=== PATIENT | male | born 1935 | race Caucasian/White ===

== ENCOUNTER 2018-11-11 14:51 | Inpatient (IN) | payer OTHER ==
[~2018-11-11] VITALS: Ht 172.7 cm; Wt 82.6 kg
[2018-11-11 14:55] VITALS: BP 111/68
--- NOTE | 2018-11-11 14:55 | NUR ---
PATIENT BIBA TO BED 7 AT THIS TIME.
[2018-11-11] MEDS ORDERED: IBUPROFEN 800 MG TAB PO ONE (15:15)
[2018-11-11] MEDS ORDERED: ACETAMINOPHEN EXTRA STRENGTH 500 MG TAB PO ONE (15:15)
[2018-11-11] MEDS ORDERED: SYN.05 PO (15:19)
[2018-11-11] MEDS ORDERED: IBUPROFEN 800 MG TAB ONE (15:24)
[2018-11-11] MEDS ORDERED: ACETAMINOPHEN EXTRA STRENGTH 500 MG TAB ONE (15:25)
--- NOTE | 2018-11-11 15:36 | NUR ---
PT BIB ALS C/O ALOC. PER EMS PT WAS FOUND IN HOT CAR SLEEPING. PT IS AROUSABLE BUT LETHARGIC, AAOX2 (BS 87). +4 PITTING BILATERAL LOWER EXTREMITY EDEMA NOTED, ABD DISTENDED. TEMPERATURE 102.0, COOLING MEASURES TAKEN. VSS. ER MD TO SEE PT. PMH: HYPOTHRYOIDISM, HEPATITIS RX: DIURETIC (PT UNSURE OF NAME)
[2018-11-11] MEDS ORDERED: MULTIVITAMIN-12 10 ML, THIAMINE 100 MG, MAGNESIUM SULFATE 50% 2,000 MG, FOLIC ACID 5 MG... IV ONE ×5 (16:18)
[2018-11-11 16:54] LABS: BASOPHILS % (AUTO) 0.2 % (0.0-2.0); EOSINOPHILS % (AUTO) 0.5 % (0.0-4.0); HEMOGLOBIN 9.4 g/dL (12.0-18.0); LYMPHOCYTES # (AUTO) 0.8 K/uL (2.0-11.5); LYMPHOCYTES % (AUTO) 10.7 % (20.5-51.1); MEAN CORPUSCULAR HEMOGLOBIN 33 pg (27-31); MEAN CORPUSCULAR HGB CONC 34 g/dL (33-37); MEAN CORPUSCULAR VOLUME 97.6 fL (80-94); MONOCYTES % (AUTO) 13.6 % (1.7-9.3); NEUTROPHILS # (AUTO) 5.3 K/uL (1.8-7.7); PLATELET COUNT (AUTO) 165 K/uL (140-450); RED BLOOD CELL COUNT(AUTO) 2.87 MIL/uL (4.20-6.10); RED CELL DISTRIBUTION WIDTH 16.3 % (11.6-13.7); WHITE BLOOD COUNT (AUTO) 7.1 K/uL (4.8-10.8)
--- NOTE | 2018-11-11 17:10 | NUR ---
# 16 FR Vivas catheter with 10 ml utilizing sterile technique. Immediate return of 50 ml JANELLE urine noted. Bedside drainage bag placed below level of bladder. Urine sample collected and sent to lab. Pt tolerated procedure WELL.
[2018-11-11 17:11] LABS: AMYLASE 43 U/L (25-115); LIPASE 85 U/L (73-393)
[2018-11-11 17:13] LABS: ANION GAP 13.2 (8-16); CARBON DIOXIDE 20.4 mmol/L (21-32); CHLORIDE 105 mmol/L (98-107); CREATININE 1.6 mg/dL (0.7-1.3); GLUCOSE 91 mg/dL (74-106); POTASSIUM 3.6 mmol/L (3.5-5.1); SODIUM SERUM 135 mmol/L (136-145); UREA NITROGEN, BLOOD 26 mg/dL (7-18)
[2018-11-11 17:20] LABS: ALBUMIN 1.5 g/dL (3.4-5.0); ASPARTATE AMINOTRANSFERASE 31 U/L (15-37); TOTAL BILIRUBIN 2.6 mg/dL (0.0-1.0)
--- NOTE | 2018-11-11 17:26 | NUR ---
PT AT CT AT THIS TIME
[2018-11-11 17:37] LABS: APPEARANCE,URINE CLEAR (CLEAR); BILIRUBIN,URINE 2+ (NEGATIVE); BLOOD, URINE 2+ (NEGATIVE); COLOR,URINE DARK YELLOW (YELLOW); LEUKOCYTE ESTERASE ,URINE TRACE (NEGATIVE); NITRITE, URINE NEGATIVE (NEGATIVE); UGLUCOSE NEGATIVE (NEGATIVE)
[2018-11-11 17:44] LABS: BARBITURATE, URINE NEG. ng/ml (NEG <=200); BENZODIAZEPINE, URINE NEG. ng/mL (NEG <=200); CANNABINOID, URINE NEG. ng/mL (NEG <=50); COCAINE, URINE NEG. ng/mL (NEG <=300); OPIATE, URINE NEG. ng/mL (NEG <=2000); PHENCYCLIDINE SCREEN,URINE NEG. ng/mL (NEG <=25)
[2018-11-11 17:48] LABS: HYALINE CASTS, URINE 0-10 /LPF (None Seen)
[2018-11-11] MEDS ORDERED: NACL 0.9% 1,000 ML IV SCH (18:27)
[2018-11-11] MEDS ORDERED: HYDROcodone/APAP 5/325 MG 1 TAB TAB PO PRN (18:30)
[2018-11-11] MEDS ORDERED: MORPHINE SULFATE 2 MG/ML SYR IVP PRN (18:30)
[2018-11-11] MEDS ORDERED: DOCUSATE SODIUM 100 MG GELCAP PO PRN (18:30)
[2018-11-11] MEDS ORDERED: ACETAMINOPHEN 325 MG TAB PO PRN (18:30)
[2018-11-11] MEDS ORDERED: ONDANSETRON 4 MG/2 ML VIAL IM/IVP PRN (18:30)
[2018-11-11] MEDS ORDERED: MEDICATION REC. PHARMACY CONS. 1 EA MISC MC PRN (18:40)
--- NOTE | 2018-11-11 18:50 | NUR ---
Pt transferred to Tele via BED 121A WITH MARICHUY CANTU.
--- NOTE | 2018-11-11 18:50 | NUR ---
Patient will be admitted to care of [facility]. Admited to TELE VIA GURMARIELA W/ VSS. Will go to room 121A. Belongings list completed. Report to CAMILA BENEDICT.
--- NOTE | 2018-11-11 18:55 | NUR ---
Pt admitted to room 121A from ER via gurney. Transferred to bed with 2-person mod assist. Pt aaox3, verbally responsive, respirations even & nonlabored. Left forearm IV intact with ongoing Banana bag @ 250ml/hr. Vivas cath in place & draining min amt james urine. BLE 4+ pitting edema, mod ascites to abd. Pt oriented to room & unit. Able to follow commands & return demonstrate proper use of call light. Proof Coin Collector at bedside to draw blood. Will cont to monitor.
--- NOTE | 2018-11-11 19:30 | NUR ---
Bedside report given to pm nurse Tracee.
--- NOTE | 2018-11-11 19:31 | NUR ---
RECEIVED REPORT FROM AM NURSE CAMILA, PT JUST ARRIVED FROM ED, V/S TAKEN, WNL, IV TO L FA 20G PATENT, INTACT, INFUSING WELL, PT ON 2LPM O2 VIA NC, NO SOB NOTED, INITIAL ASSESSMENT DONE, ALL SAFETY PRECAUTION MET, MRSA SWAB TAKEN, ORIENT PT TO ROOM, BED, AND CALL LIGHT, WILL CONTINUE TO MONITOR.
[2018-11-11 19:50] VITALS: BP 120/60
[2018-11-11 20:04] LABS: MAGNESIUM 2.3 mg/dL (1.8-2.4); PHOSPHORUS 3.1 mg/dL (2.5-4.9); THYROID STIMULATING HORMONE 23.64 uIU/mL (0.34-3.74)
[2018-11-11 20:07] LABS: PROTHROMBIN TIME 13.7 secs (10.8-13.4)
[2018-11-11] MEDS ORDERED: MELATONIN 3 MG TAB PO PRN (21:00)
--- NOTE | 2018-11-11 21:00 | NUR ---
HEPARIN NOT ADMINISTERED, PT HAD A LOT ECCHYMOSIS AND HAD BLEEDING FROM EARLIER BLOOD DRAW THAT HAS NOT CLOTTED, NOTIFIED DR. BENITES REGARDING HEPARIN HELD. STATED UNDERSTANDING.
[2018-11-11] MEDS ORDERED: ALBUTEROL SULFATE/IPRATROPIU 3 ML SOL IH PRN (21:05)
[2018-11-11] MEDS ORDERED: LACTULOSE 20 GM/30 ML UDC PO ONE (22:30)
--- NOTE | 2018-11-11 23:05 | NUR ---
DUE MEDICATION ADMINISTERED, PT TOLERATED WELL, NO DISTRESS NOTED, CALL LIGHT WITHIN REACH, WILL CONTINUE TO MONITOR.
[2018-11-12] VITALS: BP 105/65
--- NOTE | 2018-11-12 02:12 | NUR ---
CHECKED ON PT PT SLEEPING, CALL LIGHT WITHIN REACH, WILL CONTINUE TO MONITOR.
[2018-11-12 04:00] VITALS: BP 114/68
--- NOTE | 2018-11-12 04:30 | NUR ---
NOTIFIED DR. BENITES REGARDING PT IS NOT MAKING URINE, THROUGH OUT THE NIGHT ONLY 20ML URINE COLLECTED IN THE ARELLANO CATH. STATED UNDERSTANDING WILL ORDER RENAL CONSULT. PT RESTING, NO DISTRESS NOTED, CALL LIGHT WITHIN REACH, WILL CONTINUE TO MONITOR.
[2018-11-12] MEDS ORDERED: PIPER/TAZO 2.25GM/D5W PREMIX 50 ML IV SCH ×2 (05:00→12:00)
[2018-11-12] MEDS ORDERED: PIPERACILLIN/TAZOBACTAM 2.25 GM VIAL IV ONE (05:20)
[2018-11-12] MEDS ORDERED: LEVOTHYROXINE 0.05 MG TAB PO SCH (06:30)
[2018-11-12 06:34] LABS: BASOPHILS # (AUTO) 0.1 K/uL (0.00-0.22); BASOPHILS % (AUTO) 0.8 % (0.0-2.0); EOSINOPHILS # (AUTO) 0.1 K/uL (0-0.4); EOSINOPHILS % (AUTO) 0.9 % (0.0-4.0); HEMATOCRIT 28.6 % (36-52); HEMOGLOBIN 9.7 g/dL (12.0-18.0); LYMPHOCYTES % (AUTO) 11.4 % (20.5-51.1); MEAN CORPUSCULAR HEMOGLOBIN 33 pg (27-31); MEAN CORPUSCULAR HGB CONC 34 g/dL (33-37); MEAN CORPUSCULAR VOLUME 97.6 fL (80-94); MONOCYTES # (AUTO) 0.9 K/uL (0.8-1.0); MONOCYTES % (AUTO) 10.9 % (1.7-9.3); NEUTROPHILS # (AUTO) 6.5 K/uL (1.8-7.7); PLATELET COUNT (AUTO) 171 K/uL (140-450); RED BLOOD CELL COUNT(AUTO) 2.93 MIL/uL (4.20-6.10); RED CELL DISTRIBUTION WIDTH 16.6 % (11.6-13.7); WHITE BLOOD COUNT (AUTO) 8.6 K/uL (4.8-10.8)
--- NOTE | 2018-11-12 06:41 | NUR ---
ATTEMPT TO CONTACT [facility] FOR PT MEDICAL RECORD, TOLD TO CALL BACK AT [phone].
[2018-11-12 06:49] LABS: CHOL/HDL RATIO 3.6 (1-4.5)
[2018-11-12 06:51] LABS: ANION GAP 13.3 (8-16); CARBON DIOXIDE 20.4 mmol/L (21-32); CHLORIDE 106 mmol/L (98-107); CREATININE 1.7 mg/dL (0.7-1.3); GLUCOSE 114 mg/dL (74-106); POTASSIUM 3.7 mmol/L (3.5-5.1); SODIUM SERUM 136 mmol/L (136-145); UREA NITROGEN, BLOOD 27 mg/dL (7-18)
--- NOTE | 2018-11-12 07:20 | NUR ---
ENDORSED PT TO DAY SHIFT NURSE, PT STABLE, NO DISTRESS NOTED, CALL LIGHT WITHIN REACH.
--- NOTE | 2018-11-12 07:20 | NUR ---
REPORT RECEIVED FROM NIGHT NURSE CARRILLO, PT SLEEPING, EASILY AROUSABLE, AWAKE AND APPROPRIATE. PT DENIES SOB OR PAIN. PERSONAL ITEMS WITHIN EASY REACH, CALL LIGHT, FALL AND SAFETY PRECAUTIONS IN PLACE, WILL CONTINUE TO MONITOR.
[2018-11-12] MEDS ORDERED: FUROSEMIDE 20 MG/2 ML VIAL IVP SCH ×2 (07:41→09:00)
[2018-11-12] MEDS ORDERED: BISACODYL 10 MG SUPP RC SCH (07:41)
[2018-11-12 08:00] VITALS: BP 105/66
[2018-11-12] MEDS: ALBUTEROL SULFATE/IPRATROPIU 3 ML SOL IH SCH ×3 (08:10→20:02)
[2018-11-12] MEDS ORDERED: LACTULOSE 20 GM/30 ML UDC PO SCH ×3 (09:00→21:00)
[2018-11-12] MEDS ORDERED: SPIRONOLACTONE 50 MG TAB PO SCH (09:00)
--- NOTE | 2018-11-12 09:30 | NUR ---
ATTEMPTED BLADDER SCAN AT BEDSIDE, ARCHITECTURAL TECHNICIAN PRESENT, PER ARCHITECTURAL TECHNICIAN PT ASCITIC, FREE FLUID OBSTRUCTING ACCURACY OF BLADDER SCAN, RECORDS IN EXCESS OF 999 ML. ORDERS TO BE WRITTEN. PT CURRENTLY COMFORTABLE, AWAKE AND APPROPRIATE. PT DENIES SOB OR PAIN. PERSONAL ITEMS WITHIN EASY REACH, CALL LIGHT, FALL AND SAFETY PRECAUTIONS IN PLACE, WILL CONTINUE TO MONITOR.
--- NOTE | 2018-11-12 09:41 | NUR ---
PATIENT HAS BEEN SCREENED AND CATEGORIZED HIGH NUTRITION RISK. PATIENT WILL BE SEEN WITHIN 1-2 DAYS OF ADMISSION. 11/12/18-11/13/[address]
--- NOTE | 2018-11-12 10:30 | NUR ---
SPOKE WITH NORBERTO AT [facility] IN INFORMATION AND RECORDS TO REQUEST RECORDS AND FAX NUMBER TO SEND AUTHORIZATION. FAX NUMBER VERIFIED FOLLOWS [phone] REQUEST FOR MEDICAL RECORDS FAXED TO [facility].
--- NOTE | 2018-11-12 10:52 | NUR ---
AAYUSH FROM ADMITTING NOTIFIED ME THAT THIS PATIENT INSURANCE IS BELONG TO [facility], AND TO CALL THE CM YAHAIRA [phone] . I CALLED YAHAIRA GASPAR LEFT A MESSAGE
--- NOTE | 2018-11-12 11:00 | NUR ---
NOTIFIED PT OF PHYSICIAN ORDER FOR STOOL SAMPLE, COLLECTION CONTAINER PLACED AT BEDSIDE AND PT INSTRUCTED TO NOTIFY NURSING WHEN HE FEELS THE URGE TO PASS STOOL. PT AGREEABLE, VERBALIZED UNDERSTANDING. PT REMAINS AWAKE AND APPROPRIATE. PT DENIES SOB OR PAIN. ERSONAL ITEMS WITHIN EASY REACH, CALL LIGHT, FALL AND SAFETY PRECAUTIONS IN PLACE, WILL CONTINUE TO MONITOR.
--- NOTE | 2018-11-12 11:36 | NUR ---
WOUND CARE EVALUATION NOTE: SKIN ASSESSMENT DONE WITH THIS 82 Y/O MALE ADMITTED TO [facility] WITH ALOC.PAST MEDICAL HX INCLUDES RENAL FAILURE, HEPATITIS C, HYPOTHYROIDISM AND CIRRHOSIS. PT PCP IS AT [facility]. ABOVE INFORMATION WAS OBTAINED FROM ADMISSION H&P.PT. UPPER ARMS WITH MULTIPLE ECCHYMOSIS, SKIN VERY THIN FRAGILE AND DRY. POC DISCUSSED WITH PT. AND PRIMARY RN. AND PT. PT. VERBALIZES UNDERSTANDING. INTEGUMENTARY: - BILATERAL UPPER ARMS WITH MULTIPLE ECCHYMOSIS, SKIN VERY THIN FRAGILE AND DRY -ABDOMINAL DISTENTION SKIN INTACT -SKIN TEARS TO LEFT THUMBS AND LEFT WRIST DRESSING DCI -BILATERAL +1 EDEMA WITH FUNGAL TOE NAILS -RIGHT LOWER BUTTOCK WITH OLD HEALED SCARS -RIGHT BUTTOCK IAD 0.5X0.5CM EROSION, WOUND BED PINK, MOIST, NO ODOR, PERR-WOUND SKIN INTACT RECOMMENDATIONS: -APPLY HYDRA GUARD TO UPPER EXTREMITIES BID AND LEAVE IT OPEN TO AIR - CLEANSE RIGHT BUTTOCK WITH WOUND NS. AND APPLY Z-GUARD COVER WITH OPTIFOAM DRESSING QD AND PRN IF SOILING -APPLY VERSATEL DRESSING TO LEFT HAND SKIN TEARS AND RIGHT /LEFT UPPER ARMS Q7 DAYS AND PRN IF SOILING PREVENTION -APPLY HEEL PROTECTORS TO BOTH HEELS AT ALL TIMES -OFFLOAD BILATERAL HEELS BY PLACING PILLOWS UNDER CALVES UNLESS OTHERWISE CONTRAINDICATED -PRESSURE REDISTRIBUTION SURFACE THERAPY BY POSITIONING PILLOWS -TURN AND REPOSITION Q2H, OFFLOAD SACRALCOCCYX AND BUTTOCKS BY TURNING RIGHT AND LEFT -CONTINUE TO FOLLOW RD RECOMMENDATIONS -KEEP SKIN DRY AND CLEAN AT ALL TIMES. RECOMMENDATIONS DISCUSSED WITH PRIMARY RN PLEASE CONTACT WOUND CARE NURSE FOR ANY QUESTIONS AND CHANGES IN SKIN CONDITION.
[2018-11-12 12:00] VITALS: BP 115/67
[2018-11-12] MEDS ORDERED: Z-GUARD PASTE TP SCH (13:00)
[2018-11-12] MEDS ORDERED: ALBUMIN HUMAN 25% 100 ML IV SCH (13:00)
[2018-11-12] MEDS ORDERED: HYDRAGUARD CREAM TP SCH (13:00)
--- NOTE | 2018-11-12 13:00 | NUR ---
PT CURRENTLY SLEEPING COMFORTABLY.NO S/S OF ACUTE DISTRESS NOTED. PERSONAL ITEMS WITHIN EASY REACH, CALL LIGHT, FALL AND SAFETY PRECAUTIONS IN PLACE, WILL CONTINUE TO MONITOR.
--- NOTE | 2018-11-12 13:30 | NUR ---
I RECEIVED A CALL FROM YAHAIRA GASPAR FROM [facility] STATED PATIENT NEEDS TO BE TRANSFERRED TO CONTRACTED FACILITY IF STABLE. DR PEREZ TRANSFERRED THE CARE TO DR JENA VEGA. I CALLED DR BELLA AND NOTIFIED THE INSURANCE REQUEST, PER DR BELLA PT IS OK TO BE TRANSFERRED. I CALLED YAHAIRA THE CM ANY NOTIFIED DR BELLA'S ORDER, PER YAHAIRA PT WILL BE TRANSFERRED TO [facility] UNDER THE CARE OF DR HORVATH . SHE WILL CALL WHEN BED IS AVAILABLE
[2018-11-12] MEDS ORDERED: ACET-1182 PO (13:59)
[2018-11-12] MEDS ORDERED: ALBU3SOL83 IH (13:59)
[2018-11-12] MEDS ORDERED: LACT10SO11 PO (13:59)
[2018-11-12 15:13] VITALS: BP 115/67
--- NOTE | 2018-11-12 15:17 | NUR ---
HUBERT SYED CALLED BACK AND PATIENT IS GOING TO [facility] ROOM # 195-1 THE # TO GIVE REPORT [phone] PER YAHAIRA SHE ARRANGED TRANSPORT WITH AM AND SIDE SPLITTER TIME 1530 .NOTIFIED MARICHUY ESTRADA.
--- NOTE | 2018-11-12 15:30 | NUR ---
REPORT CALLED TO DAMON AT [facility] [phone]
--- NOTE | 2018-11-12 15:55 | NUR ---
PT REMAINS AWAKE AND APPROPRIATE. PT DENIES SOB OR PAIN. PT PROVIDED DC INSTRUCTIONS, VERBALIZED UNDERSTANDING. PT TRANSPORTED TO [facility] VIA AMBULANCE SERVICE W O2 AT 2LPM. PT DISCHARGED W ALL PERSONAL BELONGINGS, NO NEW SKIN IMPAIRMENTS NOTED. PT NOT IN FACILITY DURING FLU SEASON, ENDORSED TO DAMON AT [facility], PT TO HAVE PNEUMONIA VACCINE PRIOR TO DISCHARGE HOME.
--- NOTE | 2018-11-12 16:08 | NUR ---
SPOKE WITH NATALIO [phone] AT [facility], NOTIFIED PT TRANSPORTED W HOSPITAL FABRIC SEPARATOR OPERATOR AND REQUESTED RETURN. PER Natalio, SHE WILL CONTACT DISPATCH WITH THE REQUEST.
--- NOTE | 2018-11-12 16:44 | NUR ---
11/12/18 RD INITIAL ASSESSMENT COMPLETED PLEASE REFER TO NUTRITION ASSESSMENT UNDER CARE ACTIVITY FOR ESTIMATED NUTRITIONAL NEEDS. 1. CONTINUE HEPATIC DIET DIET TOLERATED 3. RD TO FOLLOW-UP 2-3 DAYS, HIGH RISK VIK PRADO RD
[2018-11-13 08:11] LABS: HEPATITIS A ANTIBODY IGM Negative (Negative); HEPATITIS B CORE AB TOTAL Negative (Negative); HEPATITIS B SURFACE ANTIBODY Non Reactive (.); HEPATITIS B SURFACE ANTIGEN Negative (Negative)
[2018-11-13] MEDS ORDERED: LACTOBACILLUS RHAMNOSUS GG 1 EACH CAP PO SCH (09:00)
[2018-11-13] MEDS ORDERED: FUROSEMIDE 20 MG/2 ML VIAL IVP SCH (09:00)
[2018-11-13 11:17] LABS: TRANSFERRIN 151 mg/dL (200-370)
[2018-11-14 16:26] LABS: FERRITIN 163 ng/mL (30-400); FOLIC ACID > 20.00 ng/mL (>3.0)
== END 2018-11-12 15:50 | disposition short-term general hospital (02) | DRG 871 ==
LOC: MED 14:51 → MTU 19:04
PROVIDERS: ADMIT Internal Medicine Pulmonary Disease; ATTEND Internal Medicine Pulmonary Disease
DX: A41.9 Sepsis, unspecified organism (principal); J18.9 Pneumonia, unspecified organism; N17.0 Acute kidney failure with tubular necrosis; E43 Unspecified severe protein-calorie malnutrition; N39.0 Urinary tract infection, site not specified; E72.20 Disorder of urea cycle metabolism, unspecified; R18.8 Other ascites; D68.9 Coagulation defect, unspecified; E87.1 Hypo-osmolality and hyponatremia; J98.11 Atelectasis; E87.2 Acidosis; E03.9 Hypothyroidism, unspecified; Z86.19 Personal history of other infectious and parasitic diseases; E86.0 Dehydration; N18.3 Chronic kidney disease, stage 3 (moderate); E80.6 Other disorders of bilirubin metabolism; E23.7 Disorder of pituitary gland, unspecified; K74.60 Unspecified cirrhosis of liver; K72.90 Hepatic failure, unspecified without coma; R16.1 Splenomegaly, not elsewhere classified; B19.20 Unspecified viral hepatitis C without hepatic coma; D63.8 Anemia in other chronic diseases classified elsewhere; I25.10 Atherosclerotic heart disease of native coronary artery without angina pectoris; Z68.27 Body mass index [BMI] 27.0-27.9, adult; R31.9 Hematuria, unspecified; E83.51 Hypocalcemia; N18.9 Chronic kidney disease, unspecified
CPT/HCPCS: 36415; 51702; 70450; 71045; 76604; 76705; 80048; 80053; 80305; 81001; 82140; 82150; 82607; 82728; 82746; 83036; 83540; 83605; 83690; 83735; 83880; 84100; 84439; 84443; 84484; 85025; 85045; 85610; 85730; 86704; 86706; 86708; 86709; 86803; 86886; 86900; 86901; 87040; 87081; 87086; 87340; 93005; 94640; 96365; 96366; 97116; 97161-GP; 97530; 99285; A9153; C1758; G0482; J1940; J2543; J3411; J3475; J3490; J7030; J7060; J7620; P9046; Q0092